=== PATIENT | male | born 1980 | race Caucasian/White ===

== ENCOUNTER 2016-09-04 13:35 | Emergency (ER) | payer OTHER ==
[2016-09-04 13:44] VITALS: TEMP 98.7
[2016-09-04] MEDS ORDERED: Aspirin 325 mg EC Tablets PO STA (13:55)
--- NOTE | 2016-09-04 14:10 | RAD ---
HISTORY: chest pain COMPARISON: Chest x-ray performed 07/27/15 TECHNIQUE: Chest, one view. FINDINGS: Examination limited by habitus and hypoinflation. LUNGS: No focal consolidation. Please note that chest x-ray has limited sensitivity for the detection of pulmonary masses. PLEURA: No significant pleural effusion identified. No definite pneumothorax . CARDIOVASCULAR: The cardiomediastinal silhouette appears within normal limits of size. OSSEOUS STRUCTURES: No acute osseous abnormality identified. VISUALIZED UPPER ABDOMEN: Unremarkable. OTHER FINDINGS: None. IMPRESSION: No focal consolidation, significant pleural effusion, or definite pneumothorax identified.
[2016-09-04 14:34] LABS: BASO % 0.6 % (0.0-2.0); EOS # 0.1 K/uL (0.0-0.7); EOS % 1.4 % (0.0-4.0); HEMATOCRIT 47.9 % (35.0-51.0); LYMPH # 2.2 K/uL (1.0-4.3); LYMPH % 30.1 % (20.0-40.0); MEAN CORPUSCULAR HEMOGLOBIN 29.3 pg (27.0-31.0); MEAN CORPUSCULAR HGB CONC 34.5 g/dL (33.0-37.0); MEAN PLATELET VOLUME 9.1 fL (7.2-11.7); MONO # 0.6 K/uL (0.0-0.8); MONO % 7.9 % (0.0-10.0); NRBC % 0.1 % (0.0-2.0); WHITE BLOOD COUNT 7.2 K/uL (4.8-10.8)
[2016-09-04 14:43] LABS: INR 1.1; PARTIAL THROMBOPLASTIN TIME 33 SECONDS (21-34)
[2016-09-04 14:45] LABS: CHLORIDE 99 mmol/L (98-107); POTASSIUM 4.2 mmol/L (3.6-5.2); SODIUM 141 mmol/L (132-148)
[2016-09-04 14:47] LABS: GFR AFRICAN-AMERICAN > 60
[2016-09-04 14:48] LABS: ALB/GLOB RATIO 1.3 (1.0-2.1); ALKALINE PHOSPHATASE 79 U/L (38-126); ALT/SGPT 32 U/L (21-72); AST/SGOT 26 U/L (17-59); BILIRUBIN,TOTAL 0.6 mg/dL (0.2-1.3); BLOOD UREA NITROGEN 14 mg/dL (9-20); CARBON DIOXIDE 29 mmol/L (22-30); GLUCOSE,RANDOM 102 mg/dL (75-110); TOTAL PROTEIN 7.5 g/dL (6.3-8.3)
--- NOTE | 2016-09-04 15:06 | C.PDOC ---
Time Seen by Provider: 09/04/16 13:48 Chief Complaint (Nursing): Chest Pain History Per: Patient Onset/Duration Of Symptoms: Days (1), Waxing/Waning Current Symptoms Are (Timing): Still Present Severity: Moderate Quality: "Pain" Associated Symptoms: denies: Nausea, Dyspnea, Diaphoresis, Syncope Modifying Factors: Other Indicated Below Exacerbating Factors: Movement Additional History Per: Prior Records Past Medical History Reviewed: Historical Data, Nursing Documentation, Vital Signs Vital Signs: Last Vital Signs Temp 98.7 F 09/04/16 13:40 Pulse 94 H 09/04/16 13:40 Resp 18 09/04/16 13:40 BP 115/72 09/04/16 13:40 Pulse Ox 99 09/04/16 13:40 - Medical History PMH: No Chronic Diseases Surgical History: No Surg Hx Family History: States: Unknown Family Hx - Social History Hx Tobacco Use: No Hx Alcohol Use: No Hx Substance Use: No - Immunization History Hx Tetanus Toxoid Vaccination: No Hx Influenza Vaccination: No Hx Pneumococcal Vaccination: No Review Of Systems Except As Marked, All Systems Reviewed And Found Negative. Constitutional: Negative for: Fever, Weakness ENT: Positive for: Ear Pain (discomfort) Respiratory: Negative for: Shortness of Breath, Hemoptysis Gastrointestinal: Negative for: Vomiting, Abdominal Pain Musculoskeletal: Negative for: Neck Pain, Back Pain, Leg Pain Skin: Negative for: Rash Neurological: Negative for: Weakness, Numbness, Seizures, Altered Mental Status Physical Exam - Physical Exam Appears: Non-toxic, No Acute Distress Skin: Normal Color, Warm, Dry, No Rash Head: Atraumatic, Normacephalic Eye(s): bilateral: PERRL, EOMI Ear(s): Bilateral: Other (ear wax) Neck: Normal ROM, Supple Cardiovascular: Rhythm Regular Respiratory: Normal Breath Sounds, No Accessory Muscle Use Gastrointestinal/Abdominal: Soft, No Tenderness Back: No CVA Tenderness Extremity: Normal ROM, No Pedal Edema, No Calf Tenderness Pulses: Left Radial: Normal, Right Radial: Normal Neurological/Psych: Oriented x3, Normal Motor, Normal Sensation ED Course And Treatment - Laboratory Results Result Diagrams: 09/04/16 14:30 09/04/16 14:30 Lab Interpretation: No Acute Changes ECG: Interpreted By Me, Viewed By Me ECG Rhythm: Sinus Rhythm, Nonspecific Changes Rate From EC O2 Sat by Pulse Oximetry: 99 Pulse Ox Interpretation: Normal - Radiology CXR: Viewed By Me, Read By Radiologist CXR Interpretation: Yes: No Acute Disease Disposition Counseled Patient/Family Regarding: Studies Performed, Diagnosis, Need For Followup, Rx Given - Disposition Referrals: [facility] at [facility] [Outside] Disposition: HOME/ ROUTINE Disposition Time: 15:07 Condition: IMPROVED Additional Instructions: Follow up in the clinic within 1 week for further evaluation and treatment. Return to the ER if you develop shortness of breath, worsening of symptoms or if you have any other concerns. Prescriptions: Aspirin [Ecotrin] 81 mg PO DAILY #30 tabec Carbamide Peroxide [Debrox 15 Ml] 5 drop OT BID #1 bottle Instructions: Chest Pain (ED) Forms: [employer] (Salvadorean) Print Language: BELARUSIAN - Clinical Impression Clinical Impression: Chest pain, Excessive ear wax
[2016-09-04 15:22] VITALS: BP 103/61; PULSE 81; RESP 16; O2SAT 100
--- NOTE | 2016-09-07 07:11 | CARD ---
APPROVED REPORT EKG Measurement Heart [id number] <Conclusion> Sinus tachycardia Nonspecific T wave abnormality Abnormal ECG
== END 2016-09-04 15:22 | disposition home or self-care (01) ==
LOC: C.ER 13:35
DX: R07.9 Chest pain, unspecified (principal); H61.23 Impacted cerumen, bilateral

== ENCOUNTER 2017-03-25 09:14 | Emergency (ER) | payer SELFPAY ==
[2017-03-25 09:15] VITALS: BMI 32.1
[2017-03-25 09:29] VITALS: BP 118/75; PULSE 98; RESP 16; TEMP 98.8; O2SAT 100
--- NOTE | 2017-03-25 10:48 | C.PDOC ---
History Of Present Illness 36 y/o M c no PMHx p/w cough, congestion, body aches x 2 days. Reports subjective fever. Denies chest pain, vomiting, dyspnea, abdominal pain, diarrhea , recent travel. 2 family members in same ED room, also patients, with cold like symptoms. Time Seen by Provider: 03/25/17 09:34 Chief Complaint (Nursing): Cough, Cold, Congestion Past Medical History Vital Signs: Last Vital Signs Temp 98.8 F 03/25/17 09:27 Pulse 98 H 03/25/17 09:27 Resp 16 03/25/17 09:27 BP 118/75 03/25/17 09:27 Pulse Ox 100 03/25/17 10:48 Family History: States: Unknown Family Hx - Social History Hx Tobacco Use: No Hx Alcohol Use: No Hx Substance Use: No - Immunization History Hx Tetanus Toxoid Vaccination: No Hx Influenza Vaccination: No Hx Pneumococcal Vaccination: No Review Of Systems Except As Marked, All Systems Reviewed And Found Negative. Cardiovascular: Negative for: Chest Pain Respiratory: Negative for: Shortness of Breath Physical Exam - Physical Exam Additional Physical Exam Comments: Gen: NAD Head: NC/AT Eyes: PERRL ENT: MMM Neck: Supple Chest: No tenderness CV: Regular rate Lungs: CTA b/l Abd: Soft, NT Skin: No rash Back: No CVA tenderness Extremities: FROM x 4. No swelling or deformity Neuro: Alert, no focal deficit ED Course And Treatment O2 Sat by Pulse Oximetry: 100 Medical Decision Making Medical Decision Making: Patient with normal vital signs, appears well. Advised supportive care, f/u PMD , return to ED for worsening fever, stiff neck, abd pain, vomiting, dyspnea, or any other problem. Disposition - Disposition Referrals: [facility] at [facility] [Outside] Disposition: HOME/ ROUTINE Disposition Time: 10:47 Condition: STABLE Prescriptions: Ibuprofen [Motrin] 600 mg PO Q6 #25 tab Oseltamivir Phosphate [Tamiflu] 75 mg PO BID #10 capsule Instructions: Upper Respiratory Infection (ED) Forms: [employer] (Nigerian) - Clinical Impression Clinical Impression: Influenza-like illness
== END 2017-03-25 11:01 | disposition home or self-care (01) ==
LOC: C.ER 09:14
DX: J11.1 Influenza due to unidentified influenza virus with other respiratory manifestations (principal)

== ENCOUNTER 2017-10-01 09:25 | Emergency (ER) | payer OTHER, SELFPAY ==
[2017-10-01 09:25] VITALS: BMI 32.1
[2017-10-01 10:51] LABS: BASO % 0.5 % (0.0-2.0); EOS # 0.1 K/uL (0.0-0.7); EOS % 1.7 % (0.0-4.0); HEMOGLOBIN 16.3 g/dL (12.0-18.0); LYMPH # 1.8 K/uL (1.0-4.3); LYMPH % 31.7 % (20.0-40.0); MEAN CELL VOLUME 85.2 fL (80.0-94.0); MEAN CORPUSCULAR HEMOGLOBIN 29.3 pg (27.0-31.0); MEAN CORPUSCULAR HGB CONC 34.4 g/dL (33.0-37.0); MEAN PLATELET VOLUME 9.8 fL (7.2-11.7); MONO # 0.5 K/uL (0.0-0.8); NEUT # 3.4 K/uL (1.8-7.0); NEUT % 58.1 % (50.0-75.0); NRBC % 0.1 % (0.0-2.0); RBC 5.55 Mil/uL (4.40-5.90); RED CELL DISTRIBUTION WIDTH 13.7 % (11.5-14.5); WHITE BLOOD COUNT 5.8 K/uL (4.8-10.8)
[2017-10-01 11:02] LABS: URINE BILIRUBIN NEGATIVE (NEGATIVE); URINE BLOOD NEGATIVE (NEGATIVE); URINE CLARITY Clear (Clear); URINE COLOR YELLOW (YELLOW); URINE GLUCOSE (UA) NEGATIVE (Normal); URINE LEUKOCYTE ESTERASE NEGATIVE Leu/uL (Negative); URINE PROTEIN NEGATIVE (NEGATIVE); URINE UROBILINOGEN 0.2 mg/dL (0.2-1.0)
[2017-10-01 11:07] LABS: ALB/GLOB RATIO 1.4 (1.0-2.1); ALBUMIN 4.4 g/dL (3.5-5.0); ALT/SGPT 27 U/L (21-72); AST/SGOT 27 U/L (17-59); BLOOD UREA NITROGEN 17 mg/dL (9-20); CALCIUM 9.3 mg/dl (8.6-10.4); GFR NON-AFRICAN AMERICAN > 60; LIPASE 116 U/L (23-300)
--- NOTE | 2017-10-01 11:23 | C.PDOC ---
History Of Present Illness 36 y/o male presents to the ED complaining of crampy epigastric pain for the last 5 days. States he eats a diet based on roast pork and black beans. Patient additionally complains of jo-ann-colored spots on both palms, which are symmetrical. Not on soles of feet. Denies hx of genital ulcers or lymphadenopathy. Otherwise no fever, chills, nausea, vomiting, or diarrhea. Time Seen by Provider: 10/01/17 09:58 Chief Complaint (Nursing): Abdominal Pain History Per: Patient History/Exam Limitations: no limitations Onset/Duration Of Symptoms: Days Current Symptoms Are (Timing): Still Present Location Of Pain/Discomfort: Epigastric Quality Of Discomfort: Cramping Past Medical History Reviewed: Historical Data, Nursing Documentation, Vital Signs Vital Signs: Last Vital Signs Temp 98.1 F 10/01/17 09:31 Pulse 74 10/01/17 09:31 Resp 18 10/01/17 09:31 BP 120/67 10/01/17 09:31 Pulse Ox 98 10/01/17 11:25 - Medical History PMH: No Chronic Diseases Other Surgeries: Right knee surgery Family History: States: Unknown Family Hx - Social History Hx Tobacco Use: No Hx Alcohol Use: No Hx Substance Use: No - Immunization History Hx Tetanus Toxoid Vaccination: No Hx Influenza Vaccination: No Hx Pneumococcal Vaccination: No Review Of Systems Except As Marked, All Systems Reviewed And Found Negative. Constitutional: Negative for: Fever, Chills Gastrointestinal: Positive for: Abdominal Pain. Negative for: Nausea, Vomiting , Diarrhea Genitourinary: Negative for: Dysuria, Frequency, Hematuria Skin: Positive for: Rash (to palms) Physical Exam - Physical Exam Appears: Non-toxic, No Acute Distress Skin: Warm, Dry, Other (Bilateral palms w/ calluses consistent with manual labor , (+) Lacey areas of discoloration, non-tender) Head: Atraumatic, Normacephalic Eye(s): bilateral: Normal Inspection Oral Mucosa: Moist Neck: Normal ROM Chest: Symmetrical Cardiovascular: Rhythm Regular, No Murmur Respiratory: Normal Breath Sounds, No Accessory Muscle Use, No Wheezing Gastrointestinal/Abdominal: Bowel Sounds (Dull to percussion in the left and right sides), Soft, No Tenderness (and (-) Zapata's sign, (-) McBurney's point tenderness), No Guarding, Other (Moderately obese abdomen) Extremity: Bilateral: Atraumatic, Normal Color And Temperature, Normal ROM Pulses: Left Dorsalis Pedis: Normal, Right Dorsalis Pedis: Normal Neurological/Psych: Oriented x3, Normal Speech ED Course And Treatment - Laboratory Results Result Diagrams: 10/01/17 10:42 10/01/17 10:42 Lab Interpretation: Normal (ua neg.) O2 Sat by Pulse Oximetry: 98 (RA) Pulse Ox Interpretation: Normal - Radiology CXR: Interpreted by Me CXR Interpretation: Yes: No Acute Disease - Other Rad abd x 2 X-Ray: Interpreted by Me (+FOS) Medical Decision Making Medical Decision Making: Initial Plan: * Blood work * Urinalysis * RPR * Chlamydia/GC * Obstructive series x-ray Labs reviewed. X-ray obtained, all findings discussed with patient. chronic constipation normal labs diet and exercise educated Disposition Doctor Will See Patient In The: Office Counseled Patient/Family Regarding: Studies Performed, Diagnosis - Disposition Disposition: HOME/ ROUTINE Disposition Time: 11:29 Condition: GOOD Forms: [employer] (Maldivian) - Clinical Impression Clinical Impression: Abdominal colic - Scribe Statement The provider has reviewed the documentation as recorded by the Elier Andersen Provider Attestation: All medical record entries made by the Siennaibdeanna were at my direction and personally dictated by me. I have reviewed the chart and agree that the record accurately reflects my personal performance of the history, physical exam, medical decision making, and the department course for this patient. I have also personally directed, reviewed, and agree with the discharge instructions and disposition.
[2017-10-01 11:54] VITALS: BP 110/69; PULSE 61; RESP 20; TEMP 98.6; O2SAT 97
--- NOTE | 2017-10-01 14:35 | RAD ---
Abdomen four views History: Abdominal pain. Comparison: None available. Findings: No focal infiltrate or effusion. Heart size within normal limits. Moderate fecal retention the colon. Relative paucity of small bowel gas. Impression: Moderate fecal retention in the colon.
== END 2017-10-01 11:55 | disposition home or self-care (01) ==
LOC: C.ER 09:25
DX: R10.84 Generalized abdominal pain (principal)

== ENCOUNTER 2017-12-23 14:02 | Emergency (ER) | payer OTHER ==
[2017-12-23 14:02] VITALS: BMI 32.1
[2017-12-23 14:47] VITALS: BP 136/80; PULSE 65; RESP 20; TEMP 97.9; O2SAT 100
--- NOTE | 2017-12-23 15:52 | C.PDOC ---
History Of Present Illness 37 y/o male w/PMhx of gastritis presents to the ER complaining of intermittent epigastric abdominal pain which has been present for the past 2-3 weeks. Pt states "pain is worse after eating and only at work, when Im at home, my stomach does not hurt". Otherwise, pt denies having fever, chills, sore throat, nausea, vomiting, diarrhea, denies change in appetite, dysuria, hematuria. Ambulate to Ed for evaluation, not in any apparent distress. Time Seen by Provider: 12/23/17 15:11 Chief Complaint (Nursing): Rib Injury History Per: Patient History/Exam Limitations: no limitations Onset/Duration Of Symptoms: Days Current Symptoms Are (Timing): Still Present Severity: Moderate Location Of Pain/Discomfort: Epigastric Past Medical History Reviewed: Historical Data, Nursing Documentation, Vital Signs Vital Signs: Last Vital Signs Temp 97.9 F 12/23/17 14:46 Pulse 65 12/23/17 14:46 Resp 20 12/23/17 14:46 BP 136/80 12/23/17 14:46 Pulse Ox 100 12/23/17 14:46 - Medical History PMH: No Chronic Diseases Other Surgeries: Hx of surgeries Family History: States: No Known Family Hx - Social History Hx Tobacco Use: No Hx Alcohol Use: No Hx Substance Use: No - Immunization History Hx Tetanus Toxoid Vaccination: No Hx Influenza Vaccination: No Hx Pneumococcal Vaccination: No Review Of Systems Except As Marked, All Systems Reviewed And Found Negative. Constitutional: Negative for: Fever, Chills Gastrointestinal: Positive for: Abdominal Pain (epigastric pain). Negative for: Nausea, Vomiting Genitourinary: Negative for: Dysuria, Hematuria Physical Exam - Physical Exam Appears: Well, Non-toxic, No Acute Distress Skin: Normal Color, Warm, Dry Head: Normacephalic Oral Mucosa: Moist Throat: No Erythema Neck: Supple Cardiovascular: Rhythm Regular, No Murmur, No JVD Respiratory: No Decreased Breath Sounds, No Accessory Muscle Use, No Rales, No Rhonchi, No Stridor, No Wheezing Gastrointestinal/Abdominal: Soft, Tenderness (mild epigastric tenderness), No Distention, No Guarding, No Rebound Back: No CVA Tenderness Extremity: Normal ROM, No Deformity, No Swelling Neurological/Psych: Oriented x3, Normal Speech ED Course And Treatment O2 Sat by Pulse Oximetry: 100 (RA) Pulse Ox Interpretation: Normal Progress Note: On re-eval, pt is afebrile, hemodynamicaly stable. Non-toxic, tolerate Po well in ED. ENT: no acute findings. neck: Supple. Lungs: CTA B/L, BS equal B/L. Abd: benign, (-) guaridng, (-) rebound. Back: (-) CVA tenderness. Pt has clinical findings c/w epigastric pain. Pt avdised and ref. to F/u with PMD, GI in 2-3 days for re-eavl. return if any new changes. Disposition Counseled Patient/Family Regarding: Diagnosis, Need For Followup, Rx Given - Disposition Referrals: [facility] at [facility] [Outside] Disposition: HOME/ ROUTINE Disposition Time: 15:30 Condition: STABLE Additional Instructions: Encourage fluids Take medication as prescribed Follow up with PMD in 2-3 days for re-evaluation. Prescriptions: Pantoprazole Sodium [Protonix] 40 mg PO DAILY #20 ect Sucralfate [Carafate] 1 gm PO TID #20 tablet Instructions: Gastritis Forms: [employer] (Romanian) Print Language: YORUBA - Clinical Impression Clinical Impression: Epigastric abdominal pain - PA / APPRAISER ART / Resident Statement MD/DO has reviewed & agrees with the documentation as recorded. - Scribe Statement The provider has reviewed the documentation as recorded by the Elier Birch Provider Attestation All medical record entries made by the Siennaibdeanna were at my direction and personally dictated by me. I have reviewed the chart and agree that the record accurately reflects my personal performance of the history, physical exam, medical decision making, and the department course for this patient. I have also personally directed, reviewed, and agree with the discharge instructions and disposition.
== END 2017-12-23 16:05 | disposition home or self-care (01) ==
LOC: C.ER 14:02
DX: R10.13 Epigastric pain (principal)

== ENCOUNTER 2018-01-13 08:39 | Emergency (ER) | payer OTHER ==
[2018-01-13 08:39] VITALS: BMI 32.1
[2018-01-13 09:10] VITALS: BP 107/72; PULSE 75; RESP 18; TEMP 98.8; O2SAT 97
--- NOTE | 2018-01-13 09:47 | C.PDOC ---
History Of Present Illness 37 y/o male presents to the ED for evaluation of right toe/foot injury sustained 6 days ago at work. Patient states a big vat of water accidentally fell over onto the top of his right 1st toe. Now complaining of persistent pain to the area, worse with weight bearing. No other injury or symptoms. Patient reports taking motrin 200mg without relief. Time Seen by Provider: 01/13/18 09:15 Chief Complaint (Nursing): Lower Extremity Problem/Injury History Per: Patient History/Exam Limitations: no limitations Onset/Duration Of Symptoms: Days Current Symptoms Are (Timing): Still Present Past Medical History Reviewed: Historical Data, Nursing Documentation, Vital Signs Vital Signs: Last Vital Signs Temp 98.8 F 01/13/18 09:05 Pulse 75 01/13/18 09:05 Resp 18 01/13/18 09:05 BP 107/72 01/13/18 09:05 Pulse Ox 97 01/13/18 09:05 - Medical History PMH: Gastritis Family History: States: Unknown Family Hx - Social History Hx Tobacco Use: No Hx Alcohol Use: No Hx Substance Use: No - Immunization History Hx Tetanus Toxoid Vaccination: No Hx Influenza Vaccination: No Hx Pneumococcal Vaccination: No Review Of Systems Constitutional: Negative for: Fever, Chills Musculoskeletal: Positive for: Foot Pain (right great toe pain) Neurological: Negative for: Weakness, Numbness, Incoordination Physical Exam - Physical Exam Appears: Non-toxic, No Acute Distress Skin: Warm, Dry Head: Atraumatic, Normacephalic Eye(s): bilateral: Normal Inspection Oral Mucosa: Moist Neck: Normal ROM Chest: Symmetrical Respiratory: No Accessory Muscle Use, Other (NARD) Extremity: Normal ROM (Right foot with full AROM of 1st toe without difficulty), Tenderness (Generalized tenderness over the top of right 1st toe, metatarsal), No Deformity, No Swelling, Other (Skin intact) Pulses: Left Dorsalis Pedis: Normal, Right Dorsalis Pedis: Normal Neurological/Psych: Oriented x3, Normal Motor, Normal Sensation, Other (No focal deficits) ED Course And Treatment O2 Sat by Pulse Oximetry: 97 (RA) Pulse Ox Interpretation: Normal - Other Rad R FOOT X-Ray: Interpreted by Me (NEG) Medical Decision Making Medical Decision Making: Plan: * Right foot x-ray Progress: X-ray findings discussed with patient Counseled regarding diagnosis and course of discharge Disposition Counseled Patient/Family Regarding: Studies Performed, Diagnosis, Need For Followup, Rx Given - Disposition Referrals: [facility] [Outside] [facility] [Outside] PODIATRY, CLINIC [Other] Disposition: HOME/ ROUTINE Disposition Time: 09:51 Condition: GOOD Instructions: Contusion (DC) Forms: [employer] (Somali), Work Excuse Print Language: MAURITIAN - Clinical Impression Clinical Impression: Foot contusion - Scribe Statement The provider has reviewed the documentation as recorded by the Elier Andersen Provider Attestation: All medical record entries made by the Elier were at my direction and personally dictated by me. I have reviewed the chart and agree that the record accurately reflects my personal performance of the history, physical exam, medical decision making, and the department course for this patient. I have also personally directed, reviewed, and agree with the discharge instructions and disposition.
--- NOTE | 2018-01-13 11:47 | RAD ---
Date of service: 01/13/2018 PROCEDURE: Right Foot Radiographs. HISTORY: trauma COMPARISON: None. FINDINGS: BONES: No fracture seen. Relative radiolucency medial navicular bone subcortical coalescence cystic change is a consideration. 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 OTHER FINDINGS: None. IMPRESSION: No fracture or suspicious lytic lesion. Relative radiolucency medial navicular bone subcortical coalescence cystic change is a consideration. Benign etiology here favored. 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
== END 2018-01-13 10:06 | disposition home or self-care (01) ==
LOC: C.ER 08:39
DX: S90.31XA Contusion of right foot, initial encounter (principal); W22.8XXA Striking against or struck by other objects, initial encounter; Y92.89 Other specified places as the place of occurrence of the external cause; Y99.0 Civilian activity done for income or pay

== ENCOUNTER 2018-06-02 09:37 | Emergency (ER) | payer OTHER | END 2018-06-02 15:34 | disposition home or self-care (01) | LOC: C.ER 09:37 ==